=== PATIENT | male | born 1975 | race Caucasian/White ===

== ENCOUNTER → 2023-10-20 08:39 | Outpatient (CLI) | payer OTHER, SELFPAY ==
--- NOTE | 2023-10-20 08:44 | DI.RAD.S_ITS ---
PROCEDURE: XR LUMBAR SPINE 2-3V INDICATIONS: LOW BACK PAIN TECHNIQUE: 3 views of the lumbar spine were acquired. COMPARISON: None. FINDINGS: Bones: 5 [id number] vertebrae are present. There is normal bony alignment. No acute vertebral body compression fractures. Chronic appearing anterior compression deformities of the T12 and L1 vertebral bodies. Multilevel spondylosis involving the lower thoracic and thoracolumbar junction. No suspicious bony lesions. Soft tissues: Overlying bowel gas pattern is normal. No suspicious soft tissue calcifications. IMPRESSION: Lumbar spine without acute osseous abnormalities or malalignment. Chronic appearing anterior compression deformities of the lower thoracic spine and thoracolumbar junction. Multilevel spondylosis of the lower thoracic and thoracolumbar junction. Dictated by: Pancho Christensen M.D. on 10/20/2023 at 11:24 Approved by: Pancho Christensen M.D. on 10/20/2023 at 11:26
--- NOTE | 2023-10-20 08:44 | DI.RAD.S_ITS ---
PROCEDURE: XR THORACIC SPINE 2V INDICATIONS: thoracic spine pain TECHNIQUE: 3 views of the thoracic spine were acquired. COMPARISON: None. FINDINGS: Bones: No fractures or dislocations. No suspicious bony lesions. 12 pairs of ribs are noted, and appear intact where visualized. No acute compression fractures. Multilevel thoracic spondylosis most pronounced in the mid and lower thoracic spine. Soft tissues: No paravertebral stripe thickening. IMPRESSION: No acute bony abnormality. Multilevel thoracic spondylosis. Dictated by: Pancho Christensen M.D. on 10/20/2023 at 11:26 Approved by: Pancho Christensen M.D. on 10/20/2023 at 11:26
== END ==
PROVIDERS: PCP Family Medicine; Referring Provider Family Medicine; Visit Provider Family Medicine
DX: M47.814 Spondylosis without myelopathy or radiculopathy, thoracic region (principal); M47.815 Spondylosis without myelopathy or radiculopathy, thoracolumbar region; M43.8X5 Other specified deforming dorsopathies, thoracolumbar region; M54.50 Low back pain, unspecified; M54.6 Pain in thoracic spine
CPT/HCPCS: 72070; 72100

== ENCOUNTER → 2024-08-21 12:04 | Outpatient (CLI) | payer OTHER, SELFPAY ==
--- NOTE | 2024-08-21 12:05 | DI.MRI.S_ITS ---
PROCEDURE: MR SHOULDER LT WO CON INDICATIONS: EVALUATE LEFT ROTATOR CUFF TEAR TECHNIQUE: Noncontrast oblique coronal T2 fast spin echo with fat saturation, oblique sagittal T1 spin echo and T2 fast spin echo with fat saturation, axial T1 spin echo and T2 fast spin echo with fat saturation through the shoulder. COMPARISON: X-ray 08/01/2024 FINDINGS: Image quality: Excellent. Rotator cuff: There are several bony calcifications, measuring in total over 1 cm, involving the infraspinatus tendon near its insertion consistent with a calcific tendinitis. The infraspinatus tendon is enlarged in this area. There is no evidence of a tear. The supraspinatus tendon demonstrates a small focal articular partial tear near its insertion. The subscapularis tendon is intact. Bones and bursae: The humeral head demonstrates cortical irregularities and small subchondral cyst formation consistent with degenerative joint disease. There are moderate degenerative changes involving the acromioclavicular joint. Capsule and soft tissues: Labrum is intact. The long head of the biceps tendon demonstrates normal location and morphology. The rotator interval appears normal, without fibrosis. The coracohumeral ligament is normal in thickness. 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 Small focal partial tear involving the articular surface of the supraspinatus tendon. Moderate degenerative joint disease involving the glenohumeral and acromioclavicular joint. Dictated by: Bita Bee M.D. on 08/21/2024 at 13:48 Approved by: Bita Bee M.D. on 08/21/2024 at 13:59
== END ==
PROVIDERS: PCP Family Medicine; Referring Provider Orthopaedic Surgery; Visit Provider Orthopaedic Surgery
DX: M75.42 Impingement syndrome of left shoulder (principal); M75.32 Calcific tendinitis of left shoulder; M19.012 Primary osteoarthritis, left shoulder; M75.112 Incomplete rotator cuff tear or rupture of left shoulder, not specified as traumatic
CPT/HCPCS: 73221